=== PATIENT | male | born 1945 | race Caucasian/White ===

== ENCOUNTER 2016-08-16 10:21 | Observation (INO) | payer OTHER ==
[~2016-08-16] VITALS: Ht 185.4 cm; Wt 78.4 kg
[2016-08-16] MEDS ORDERED: HYDR12.56 PO (10:51)
[2016-08-16] MEDS ORDERED: LOSA1TAB PO (10:51)
[2016-08-16] MEDS ORDERED: ATOR-24 PO (10:51)
[2016-08-16] MEDS ORDERED: ASPI81TA28 PO (10:51)
[2016-08-16] MEDS ORDERED: MULT-506 PO (10:51)
[2016-08-16 11:07] LABS: BASO % 0.2 %; BASO ABS # 0.01 K/uL (0-0.2); COMPLETE YES; EOS % 0.4 %; HEMATOCRIT 37.4 % (42-52); IG% 0.4 %; LYMPH % 18.4 %; LYMPH ABS # 0.88 K/uL (1.2-3.4); MEAN CELL VOLUME 94.7 fL (80-100); MEAN CORPUSCULAR HEMOGLOBIN 32.9 pg (25-34); MEAN CORPUSCULAR HGB CONC 34.8 g/dl (32-36); MEAN PLATELET VOLUME 10.4 fL (7.4-10.4); MONO % 30.8 %; NEUT % 49.8 %; PLATELET COUNT 186 K/uL (130-400); RED BLOOD COUNT 3.95 M/uL (4.7-6.1); WHITE BLOOD COUNT 4.78 K/uL (4.8-10.8)
--- NOTE | 2016-08-16 11:11 | DIAGNOSTIC IMAGING REPORT ---
CHEST ONE VIEW PORTABLE HISTORY: Atypical CHEST PAIN COMPARISON: None. FINDINGS: The lungs are clear. Cardiac silhouette is normal in size. No pleural effusions. No pneumothorax. IMPRESSION: No acute process. Electronically signed by: Ramos Palmer M.D. 08/16/2016 11:10 AM Dictated Date/Time: 08/16/2016 11:09 AM
[2016-08-16 11:19] LABS: BUN/CREATININE RATIO 14.1 (10-20); CALCIUM 8.4 mg/dl (8.5-10.1); POTASSIUM 4.1 mmol/L (3.5-5.1)
[2016-08-16] MEDS ORDERED: ASPIRIN 81 MG CHEW PO STA (11:23)
--- NOTE | 2016-08-16 11:24 | EMERGENCY ROOM VISIT NOTE ---
History Report prepared by Piyush: Maria E Beyer Under the Supervision of: Dr. Xiang Silver M.D. First contact with patient: 10:27 Chief Complaint: CHEST PAIN Stated Complaint: CHEST PAIN History of Present Illness The patient is a 71 year old male who presents to the Emergency Room with complaints of intermittent chest pain for the past week. The patient describes his pain as a tightness in his chest. Exertion exacerbates his pain, and he becomes short of breath with walking even short distances. The patient states that he first noticed his pain last week while he was cutting his grass. His pain is located in the center of his chest and does not radiate anywhere else. He is not currently experiencing any chest pain. He has a history of a PFO but denies any other significant cardiac history. He has had a stress test in the past. He has not had any previous cardiac catheterizations. The patient denies fevers, headache, nausea, diaphoresis, abdominal pain, pain or swelling in his legs, and any recent travel. He takes a daily aspirin. He does have a diffuse rash and notes that he used a different soap yesterday than he usually does. Per , the patient's hemoglobin has been "going down" for the past year. His GI doctor does not think that he is losing blood in his stool. The patient had blood work done 3 days ago. His daughter works with a product support rep and had the product support rep look at the patient's blood work. The patient has not been seen by a product support rep. Source of History: patient Onset: 1 week ago Position: chest Quality: other (tightness) Timing: intermittent Modifying Factors (Worsening): exertion Associated Symptoms: + SOB, + rash, No abdominal pain, No diaphoresis, No fevers, No headache, No nausea Review of Systems See HPI for pertinent positives & negatives. A total of 10 systems reviewed and were otherwise negative. Past Medical & Surgical Medical Problems: (1) Chest pain (2) Hyperlipidemia (3) Hypertension (4) PFO (patent foramen ovale) (5) Spinal stenosis Old medical records were reviewed. Nurse's notes were reviewed and I agree with. Family History FHx: cancer Social History Smoking Status: Never Smoker Marital Status: Housing Status: lives with family Occupation Status: retired Current/Historical Medications Scheduled Aspirin (Aspirin Ec), 81 MG PO DAILY Atorvastatin (Lipitor), 40 MG PO DAILY Hydrochlorothiazide (Hctz), 12.5 MG PO DAILY Losartan Potassium (Cozaar), Unknown Dose PO DAILY Multivitamin (Multivitamin), 1 TAB PO DAILY Allergies Coded Allergies: Sulfa Antibiotics (Unverified Allergy, Intermediate, rash, 08/16/16) Physical Exam Vital Signs Date Time Temp Pulse Resp B/P Pulse Ox O2 Delivery O2 Flow Rate FiO2 08/16/16 11:55 97 Room Air 08/16/16 10:50 97 Room Air 08/16/16 10:33 63 08/16/16 10:23 36.6 64 17 142/83 98 Room Air Physical Exam General: Well developed well nourished non ill appearing older male in no acute distress, breathing comfortably on room air. Normal speech. Denies chest pain at present. HEENT: Normal cephalic atraumatic. Pupils are equal round and reactive to light. Sclerae are anicteric. Extraocular movements are intact. Oropharynx is pink with moist mucous membranes. No swelling of the mouth lips or tongue. Neck: Supple with a midline trachea. No meningeal signs or stiffness, no JVD or bruits. No Stridor. Chest: Clear to auscultation bilaterally. No wheezes or rhonchi. No increased work of breathing. Heart: regular rate and rhythm. Abdomen: Soft nontender, nondistended without rebound guarding or rigidity. Extremities: No cyanosis clubbing or edema. No calf tenderness or assymetry Spine/Back. Non tender to palpation. No CVA tenderness Skin: Good turgor, diffuse circular small rash that blanches. Neurologic exam: Cranial nerves two through 12 are intact. Motor and sensation are intact and symmetrical throughout. Medical Decision & Procedures ER Provider Diagnostic Interpretation: Radiology results as stated below per my review and radiologist interpretation: CHEST ONE VIEW PORTABLE HISTORY: Atypical CHEST PAIN COMPARISON: None. FINDINGS: The lungs are clear. Cardiac silhouette is normal in size. No pleural effusions. No pneumothorax. IMPRESSION: No acute process. Electronically signed by: Ramos Palmer M.D. 08/16/2016 11:10 AM Dictated Date/Time: 08/16/2016 11:09 AM Laboratory Results 08/16/16 10:50 Red Blood Count 3.95, Mean Corpuscular Volume 94.7, Mean Corpuscular Hemoglobin 32.9, Mean Corpuscular Hemoglobin Concent 34.8, Mean Platelet Volume 10.4, Neutrophils (%) (Auto) 49.8, Lymphocytes (%) (Auto) 18.4, Monocytes (%) (Auto) 30.8, Eosinophils (%) (Auto) 0.4, Basophils (%) (Auto) 0.2, Neutrophils # (Auto ) 2.38, Lymphocytes # (Auto) 0.88, Monocytes # (Auto) 1.47, Eosinophils # (Auto ) 0.02, Basophils # (Auto) 0.01 08/16/16 10:50 Test 08/16/16 10:50 08/16/16 10:57 White Blood Count 4.78 K/uL (4.8-10.8) Red Blood Count 3.95 M/uL (4.7-6.1) Hemoglobin 13.0 g/dL (14.0-18.0) Hematocrit 37.4 % (42-52) Mean Corpuscular Volume 94.7 fL (80-100) Mean Corpuscular Hemoglobin 32.9 pg (25-34) Mean Corpuscular Hemoglobin Concent 34.8 g/dl (32-36) Platelet Count 186 K/uL (130-400) Mean Platelet Volume 10.4 fL (7.4-10.4) Neutrophils (%) (Auto) 49.8 % Lymphocytes (%) (Auto) 18.4 % Monocytes (%) (Auto) 30.8 % Eosinophils (%) (Auto) 0.4 % Basophils (%) (Auto) 0.2 % Neutrophils # (Auto) 2.38 K/uL (1.4-6.5) Lymphocytes # (Auto) 0.88 K/uL (1.2-3.4) Monocytes # (Auto) 1.47 K/uL (0.11-0.59) Eosinophils # (Auto) 0.02 K/uL (0-0.5) Basophils # (Auto) 0.01 K/uL (0-0.2) RDW Standard Deviation 51.5 fL (36.4-46.3) RDW Coefficient of Variation 15.0 % (11.5-14.5) Immature Granulocyte % (Auto) 0.4 % Immature Granulocyte # (Auto) 0.02 K/uL (0.00-0.02) Erythrocyte Sedimentation Rate 20 mm/hr (0-14) Prothrombin Time 12.3 SECONDS (9.0-12.0) Prothromb Time International Ratio 1.1 (0.9-1.1) Activated Partial Thromboplast Time 28.8 SECONDS (21.0-31.0) Partial Thromboplastin Ratio 1.1 Anion Gap 4.0 mmol/L (3-11) Est Creatinine Clear Calc Drug Dose 76.6 ml/min Estimated GFR () 88.0 Estimated GFR (Non- 75.9 BUN/Creatinine Ratio 14.1 (10-20) Calcium Level 8.4 mg/dl (8.5-10.1) Total Bilirubin 0.5 mg/dl (0.2-1) Direct Bilirubin 0.2 mg/dl (0-0.2) Aspartate Amino Transf (AST/SGOT) 25 U/L (15-37) Alanine Aminotransferase (ALT/SGPT) 24 U/L (12-78) Alkaline Phosphatase 110 U/L (45-117) Total Creatine Kinase 138 U/L (39-308) C-Reactive Protein 2.42 mg/dl (0-0.29) Total Protein 7.0 gm/dl (6.4-8.2) Albumin 3.2 gm/dl (3.4-5.0) Lipase 173 U/L (73-393) Thyroid Stimulating Hormone (TSH) 2.720 uIu/ml (0.300-4.500) Lyme Disease IgG Antibody NEG (NEG) Lyme Disease IgM Antibody NEG (NEG) Bedside Troponin I 0.000 ng/ml (0-0.045) Laboratory studies as stated above per my review. Medications Administered Medications (Trade) Dose Ordered Sig/Abdullahi Route Start Time Stop Time Status Last Admin Dose Admin Aspirin 324 mg 324 mg NOW STAT PO 08/16/16 11:23 08/16/16 11:24 DC 08/16/16 11:37 324 MG Sodium Chloride (Nss 1000ml) 1,000 ml @ 50 mls/hr Q20H IV 08/16/16 11:44 09/15/16 11:43 08/16/16 13:58 50 MLS/HR ECG Indication: chest pain Rate (beats per minute): 61 Rhythm: normal sinus Findings: no acute ischemic change, no ectopy Comparison ECG Date: 12/25/2004 Change: Rate has increased otherwise no significant change. ED Course 1027: Past medical records reviewed. The patient was evaluated in room B2, and a complete history and physical examination were performed. 1122: I reassessed the patient at this time. He is feeling better and resting comfortably. I discussed the results and treatment plan with the patient. I answered all pertaining questions that he had. He expressed understanding and verbalized agreement. 1123: Aspirin 324 mg PO 1132: I spoke with Dr. Hull. We discussed the patient's results and treatment plan. The patient will be evaluated by the [facility] for further management. Medical Decision Differential diagnoses includes acute coronary syndrome, anemia, infection, electrolyte or metabolic abnormality. Medication Reconciliation: I attest that I have personally reviewed the patient' s current medication list. Blood pressure Screening: Patient was found to have normal blood pressure on screening and does not require follow-up. This patient comes in as described above. He was placed in room B2. He is here for treatment and evaluation of chest pain and shortness of breath that is exertional. He feels fine at rest. His also says hemoglobin has been chronically low. He has a rashes well that's diffuse and blanching. It is not vasculitic or petechial-appearing. He has no fever. He looks well. IV access established, EKG was obtained as well as a chest x-ray multiple blood testing was obtained. He was reassessed frequently. His hemoglobin is the 13 range. He has no thrombocytopenia. He was given aspirin. EKG shows no acute ischemic changes or ectopy. Chest x-ray was unremarkable is no evidence of congestive heart failure, pneumonia, or pneumothorax. I do think the patient needs to be admitted for further treatment and evaluation concerned any he has had persistent chest pain with exertion and I'm concerned for cardiac blockage. [facility]. Consults Time Called: 1128 Consulting Physician: Dr. Hull Returned Call: [address] Hull. We discussed the patient's results and treatment plan. The patient will be evaluated by the [facility] for further management. Impression Primary Impression: Unstable angina Additional Impressions: Precordial chest pain Rash Scribe Attestation The scribe's documentation has been prepared under my direction and personally reviewed by me in its entirety. I confirm that the note above accurately reflects all work, treatment, procedures, and medical decision making performed by me. Departure Information Dispostion Being Evaluated By Hospitalist Referrals No Doctor, Assigned (PCP) Patient Instructions My [facility] Problem Qualifiers
[2016-08-16 11:28] LABS: C-REACTIVE PROTEIN 2.42 mg/dl (0-0.29); CKMB/CK RATIO 2.1 (0-3.0); THYROID STIMULATING HORMONE 2.72 uIu/ml (0.300-4.500)
[2016-08-16 11:29] LABS: INR 1.1 (0.9-1.1); PARTIAL THROMBOPLASTIN RATIO 1.1; PROTHROMBIN TIME (PATIENT) 12.3 SECONDS (9.0-12.0)
--- NOTE | 2016-08-16 11:43 | History and Physical ---
History & Physical Date & Time of Service: August 16, 2016 at 11:43 Chief Complaint: Chest Pain Primary Care Physician: Daryl Naylor M.D. History of Present Illness Source: patient, family Patient is a 71 yr old male with PMH of HTN, HLP, PFO, seasonal allergies presents with history of intermittent chest pain since 1 week duration. Reports pressure like sensation retrosternally which started while cutting grass 1 week ago which resolved with rest after 30 minutes. States that he noticed recurrence of chest pain with exertion especially when taking a flight of stairs or walking which resolves with rest. Reports associated dizziness. Denies any pain radiation, diaphoresis, nausea, vomiting, SOB, abd pain, orthopnea, PND, leg swelling, fever, chills, change in bowel/bladder habits. Currently denies any chest pain while in ED but feels very tired. Also reports noticing a generalized erythematous rash which started about 2 days ago. His informed that she noticed a tick on his leg which she removed last . Patient had lyme screen 3 days ago by his PCP which is negative. Denies any new meds, foods, recent travel but states using a different soap yesterday which he believes using before without any problems. Past Medical/Surgical History Medical Problems: (1) PFO (patent foramen ovale) Status: Chronic (2) Spinal stenosis Status: Chronic Past Surgical History: Right Shoulder Surgery Tonsillectomy Family History FHx: cancer Father:Asthma Maternal Grandfather: Heart disease Mother:HTN Social History Smoking Status: Never Smoker Alcohol Use: socially Drug Use: none Marital Status: Occupational Status: retired Multi-Drug Resistant Organisms History of MDRO: No Allergies Coded Allergies: Sulfa Antibiotics (Unverified Allergy, Intermediate, rash, 08/16/16) Home Medications Scheduled Aspirin (Aspirin Ec), 81 MG PO DAILY Atorvastatin (Lipitor), 40 MG PO DAILY Hydrochlorothiazide (Hctz), 12.5 MG PO DAILY Losartan Potassium (Cozaar), Unknown Dose PO DAILY Multivitamin (Multivitamin), 1 TAB PO DAILY Review of Systems See HPI for pertinent positives & negatives. A total of 10 systems reviewed and were otherwise negative. Physical Exam Vital Signs Date Time Temp Pulse Resp B/P Pulse Ox O2 Delivery O2 Flow Rate FiO2 08/16/16 10:50 97 Room Air 08/16/16 10:33 63 08/16/16 10:23 36.6 64 17 142/83 98 Room Air General Appearance: WD/WN, no apparent distress Head: normocephalic, atraumatic Eyes: normal inspection, PERRL, EOMI, sclerae normal, funduscopic exam normal ENT: normal ENT inspection, hearing grossly normal Neck: supple, trachea midline Respiratory/Chest: chest non-tender, lungs clear, normal breath sounds, no accessory muscle use Cardiovascular: regular rate, rhythm, no edema, no murmur Abdomen/GI: normal bowel sounds, non tender, soft Back: normal inspection Extremities/Musculoskelatal: normal inspection, no pedal edema 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, no motor/sensory deficits, alert, normal mood/affect, oriented x 3 Skin: normal color, + rash (Diffuse, erythematous) Diagnostics Laboratory Results Results Past 24 Hours Test 08/16/16 10:42 08/16/16 10:50 08/16/16 10:57 Range/Units Creatine Kinase MB Ratio 2.1 0-3.0 White Blood Count 4.78 4.8-10.8 K/uL Red Blood Count 3.95 4.7-6.1 M/uL Hemoglobin 13.0 14.0-18.0 g/dL Hematocrit 37.4 42-52 % Mean Corpuscular Volume 94.7 80-100 fL Mean Corpuscular Hemoglobin 32.9 25-34 pg Mean Corpuscular Hemoglobin Concent 34.8 32-36 g/dl Platelet Count 186 130-400 K/uL Mean Platelet Volume 10.4 7.4-10.4 fL Neutrophils (%) (Auto) 49.8 % Lymphocytes (%) (Auto) 18.4 % Monocytes (%) (Auto) 30.8 % Eosinophils (%) (Auto) 0.4 % Basophils (%) (Auto) 0.2 % Neutrophils # (Auto) 2.38 1.4-6.5 K/uL Lymphocytes # (Auto) 0.88 1.2-3.4 K/uL Monocytes # (Auto) 1.47 0.11-0.59 K/uL Eosinophils # (Auto) 0.02 0-0.5 K/uL Basophils # (Auto) 0.01 0-0.2 K/uL RDW Standard Deviation 51.5 36.4-46.3 fL RDW Coefficient of Variation 15.0 11.5-14.5 % Immature Granulocyte % (Auto) 0.4 % Immature Granulocyte # (Auto) 0.02 0.00-0.02 K/uL Erythrocyte Sedimentation Rate 20 0-14 mm/hr Prothrombin Time 12.3 9.0-12.0 SECONDS Prothromb Time International Ratio 1.1 0.9-1.1 Activated Partial Thromboplast Time 28.8 21.0-31.0 SECONDS Partial Thromboplastin Ratio 1.1 Sodium Level 141 136-145 mmol/L Potassium Level 4.1 3.5-5.1 mmol/L Chloride Level 105 98-107 mmol/L Carbon Dioxide Level 32 21-32 mmol/L Anion Gap 4.0 3-11 mmol/L Blood Urea Nitrogen 14 7-18 mg/dl Creatinine 1.00 0.60-1.40 mg/dl Est Creatinine Clear Calc Drug Dose 76.6 ml/min Estimated GFR () 88.0 Estimated GFR (Non- 75.9 BUN/Creatinine Ratio 14.1 10-20 Random Glucose 84 70-99 mg/dl Calcium Level 8.4 8.5-10.1 mg/dl Total Bilirubin 0.5 0.2-1 mg/dl Direct Bilirubin 0.2 0-0.2 mg/dl Aspartate Amino Transf (AST/SGOT) 25 15-37 U/L Alanine Aminotransferase (ALT/SGPT) 24 12-78 U/L Alkaline Phosphatase 110 45-117 U/L Total Creatine Kinase 138 39-308 U/L Creatine Kinase MB 2.9 0.5-3.6 ng/ml C-Reactive Protein 2.42 0-0.29 mg/dl Total Protein 7.0 6.4-8.2 gm/dl Albumin 3.2 3.4-5.0 gm/dl Lipase 173 73-393 U/L Thyroid Stimulating Hormone (TSH) 2.720 0.300-4.500 uIu/ml Bedside Troponin I 0.000 0-0.045 ng/ml Diagnostic Radiology CXR: No acute process. EKG EKG: NSR, No signs of Ischemia Impression Assessment and Plan Chest Pain: R/O ACS Risk factors: H/O HTN, HLP, Former Tobacco use Initial troponin:Negative EKG: No signs of Ischemia CXR: Unremarkable Check ECHO Trend serial cardiac enzymes, repeat EKG, fasting lipid panel in AM Continue Aspirin, statins Oxygen PRN NPO after midnight Cardiology consulted Low threshold to start Heparin if chest pain reoccurs/Troponin trends up Generalized Rash: Found to have tick bite last Lyme screen negative 3 days ago Repeat Lyme screen monitor Rash not typical for lyme disease Hypertension: Stable Continue home meds Hyperlipidemia: Check lipid panel Continue statins DVT px: Heparin SQ Code Status: Full code Disposition: Monitor in Tele
[2016-08-16] MEDS ORDERED: ONDANSETRON INJ 2 MG/ML 2 ML VIAL IV PRN (11:45)
[2016-08-16] MEDS ORDERED: NITROGLYCERIN 0.4 MG SL PER TAB CHARGE SL PRN (11:45)
[2016-08-16] MEDS ORDERED: ACETAMINOPHEN 325 MG TAB PO PRN (11:45)
[2016-08-16 11:55] VITALS: O2SAT 97; Ht 185.4 cm; Wt 78.4 kg
[2016-08-16] MEDS ORDERED: MoRPHine SULFATE 2 MG/ML CARP IV PRN (12:30)
[2016-08-16 13:15] LABS: LYME DISEASE AB IGG NEG (NEG); LYME DISEASE AB IGM NEG (NEG)
[2016-08-16 13:35] VITALS: BP 150/73; PULSE 52; TEMP 36.7; O2SAT 95
[2016-08-16] MEDS ORDERED: IV FLUIDS COMPLETED PRN (13:45)
[2016-08-16] MEDS: SODIUM CHLORIDE 0.9% 1000ML 1,000 ML IV SCH (13:58)
[2016-08-16] MEDS ORDERED: HEPARIN 25,000 UNIT/500ML D5W 500 ML IV PRN (14:00)
[2016-08-16 19:22] VITALS: BP 145/78; PULSE 57; TEMP 36.7; O2SAT 96
[2016-08-16] MEDS: ATORVASTATIN 40 MG TAB PO SCH (20:28)
[2016-08-16] MEDS: ASPIRIN 81 MG ECTAB PO SCH (20:28)
[2016-08-16] MEDS: HEPARIN SOD 5000 UNIT/0.5 ML CARP SQ SCH (20:29)
[2016-08-16 23:56] VITALS: BP 134/73; PULSE 54; TEMP 36.6; O2SAT 95
[2016-08-17] VITALS (9 sets, daily range): BP systolic 115–144; BP diastolic 65–85; PULSE 51–80; TEMP 36.5–36.9; O2SAT 93–96
[2016-08-17] MEDS: HEPARIN SOD 5000 UNIT/0.5 ML CARP SQ SCH (05:54)
[2016-08-17 06:21] LABS: COMPLETE YES; EOS % 0.7 %; HEMATOCRIT 37.6 % (42-52); IG% 0.9 %; LYMPH % 16.6 %; LYMPH ABS # 0.96 K/uL (1.2-3.4); MEAN CELL VOLUME 94.2 fL (80-100); MEAN CORPUSCULAR HEMOGLOBIN 32.6 pg (25-34); MEAN CORPUSCULAR HGB CONC 34.6 g/dl (32-36); MEAN PLATELET VOLUME 10.1 fL (7.4-10.4); MONO % 31.5 %; NEUT % 50.3 %; PLATELET COUNT 167 K/uL (130-400); RED BLOOD COUNT 3.99 M/uL (4.7-6.1); WHITE BLOOD COUNT 5.77 K/uL (4.8-10.8)
[2016-08-17 06:32] LABS: PARTIAL THROMBOPLASTIN RATIO 1.2
[2016-08-17 07:00] LABS: BUN/CREATININE RATIO 14.7 (10-20); CALCIUM 8.2 mg/dl (8.5-10.1); CREATININE 0.99 mg/dl (0.60-1.40); POTASSIUM 4.1 mmol/L (3.5-5.1)
[2016-08-17 07:04] LABS: CHOLESTEROL/HDL RATIO 1.9
[2016-08-17] MEDS: SODIUM CHLORIDE 0.9% 1000ML 1,000 ML IV SCH (08:06)
[2016-08-17] MEDS ORDERED: ASPIRIN 81 MG ECTAB PO SCH (09:00)
[2016-08-17] MEDS ORDERED: ATORVASTATIN 40 MG TAB PO SCH (09:00)
--- NOTE | 2016-08-17 09:20 | Progress Note ---
Internal Med Progress Note Date of Service: August 17, 2016. Provider Documentation: SUBJECTIVE: Seen and examined at bedside. Currently denies any chest pain, SOB. No events overnight. Planned for cath tomorrow. 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 ASSESSMENT & PLAN: Chest Pain: R/O ACS Risk factors: H/O HTN, HLP, Former Tobacco use troponin:Negative EKG: No signs of Ischemia CXR: Unremarkable ECHO:pending lipid panel:wnl Continue Aspirin, statins Oxygen PRN Appreciate Cardiology input Planned for cardiac cath today Generalized Rash: Found to have tick bite last Lyme screen negative 3 days ago Repeat Lyme screen:Negative monitor Start Doxycycline 100mg BID Hypertension: Stable Continue home meds Hyperlipidemia: lipid panel:wnl Continue statins DVT px: Heparin SQ Code Status: Full code Disposition: Monitor in Tele Vital Signs: Date Time Temp Pulse Resp B/P Pulse Ox O2 Delivery O2 Flow Rate FiO2 08/17/16 15:30 36.9 54 16 138/76 96 Room Air 08/17/16 12:17 Room Air 08/17/16 12:00 Room Air 08/17/16 11:34 36.5 51 18 133/85 95 Room Air 08/17/16 08:00 Room Air 08/17/16 07:51 36.6 53 18 134/83 96 Room Air 08/17/16 04:06 36.7 72 18 136/69 94 Room Air 08/17/16 04:00 Room Air 08/17/16 00:00 Room Air 08/16/16 23:56 36.6 54 16 134/73 95 Room Air 08/16/16 20:00 Room Air 08/16/16 19:22 36.7 57 18 145/78 96 Room Air Lab Results: Results Past 24 Hours Test 08/16/16 19:55 08/16/16 23:50 08/17/16 05:52 Range/Units Creatine Kinase MB 1.8 2.0 0.5-3.6 ng/ml Creatine Kinase MB Ratio 0-3.0 Troponin I 0.023 0.022 0-0.045 ng/ml White Blood Count 5.77 4.8-10.8 K/uL Red Blood Count 3.99 4.7-6.1 M/uL Hemoglobin 13.0 14.0-18.0 g/dL Hematocrit 37.6 42-52 % Mean Corpuscular Volume 94.2 80-100 fL Mean Corpuscular Hemoglobin 32.6 25-34 pg Mean Corpuscular Hemoglobin Concent 34.6 32-36 g/dl Platelet Count 167 130-400 K/uL Mean Platelet Volume 10.1 7.4-10.4 fL Neutrophils (%) (Auto) 50.3 % Lymphocytes (%) (Auto) 16.6 % Monocytes (%) (Auto) 31.5 % Eosinophils (%) (Auto) 0.7 % Basophils (%) (Auto) 0.0 % Neutrophils # (Auto) 2.90 1.4-6.5 K/uL Lymphocytes # (Auto) 0.96 1.2-3.4 K/uL Monocytes # (Auto) 1.82 0.11-0.59 K/uL Eosinophils # (Auto) 0.04 0-0.5 K/uL Basophils # (Auto) 0.00 0-0.2 K/uL RDW Standard Deviation 50.6 36.4-46.3 fL RDW Coefficient of Variation 14.8 11.5-14.5 % Immature Granulocyte % (Auto) 0.9 % Immature Granulocyte # (Auto) 0.05 0.00-0.02 K/uL Activated Partial Thromboplast Time 30.6 21.0-31.0 SECONDS Partial Thromboplastin Ratio 1.2 Sodium Level 144 136-145 mmol/L Potassium Level 4.1 3.5-5.1 mmol/L Chloride Level 109 98-107 mmol/L Carbon Dioxide Level 30 21-32 mmol/L Anion Gap 5.0 3-11 mmol/L Blood Urea Nitrogen 15 7-18 mg/dl Creatinine 0.99 0.60-1.40 mg/dl Est Creatinine Clear Calc Drug Dose 74.7 ml/min Estimated GFR () 89.1 Estimated GFR (Non- 76.8 BUN/Creatinine Ratio 14.7 10-20 Random Glucose 86 70-99 mg/dl Calcium Level 8.2 8.5-10.1 mg/dl Triglycerides Level 72 0-150 mg/dl Cholesterol Level 87 0-200 mg/dl HDL Cholesterol 46 mg/dl LDL Cholesterol, Calculated 27 mg/dl VLDL Cholesterol, Calculated 14 mg/dl Cholesterol/HDL Ratio 1.9
[2016-08-17] MEDS: LOSARTAN POTASSIUM 50 MG TAB PO SCH (09:27)
[2016-08-17] MEDS: HYDROCHLOROTHIAZIDE 25 MG TAB PO SCH (09:28)
[2016-08-17] MEDS ORDERED: SODIUM CHLORIDE 0.9% 1000ML 1,000 ML IV SCH ×2 (09:45→22:30)
[2016-08-17] MEDS ORDERED: DC ALL ANTICOAGULANTS ONE (09:45)
--- NOTE | 2016-08-17 10:35 | ECHOCARDIOGRAM REPORT ---
*NOTICE TO RECEIVING [employer] This information is strictly Confidential and protected under [place] law. [place] law prohibits you from making any further disclosure of this information unless further disclosure is expressly permitted by the written consent of the person to whom it pertains or is authorized by law. A general authorization for the release of medical or other information is not sufficient for this purpose. Hospital accepts no responsibility if the information is made available to any other person, INCLUDING THE PATIENT. Interpretation Summary * Name: LILIAN DEL CID Study Date: 08/16/2016 02:29 PM BP: 137/78 mmHg * Patient Location: .[facility]\S\N278\S\2 HR: 57 * : 1945 (M/d/yyyy) Gender: Male Height: 71 in * Age: 71 yrs Ethnicity: CA Weight: 174 lb * Ordering Physician: Joni Hull * Referring Physician: Self, Referred * Performed By: Fatimah Castaneda RCS * * Reason For Study: CHEST PAIN / KNOWN PFO * BSA: 2.0 m2 * -- Conclusions -- * There is mild concentric left ventricular hypertrophy. * The left ventricular wall motion is normal. * Left ventricular systolic function is normal. * The LV Ejection Fraction = 60-65%. * There is trace tricuspid regurgitation. * Doppler findings do not suggest pulmonary hypertension. * Grade I diastolic dysfunction, (abnormal relaxation pattern). * There is a smal PFO with mild right to left shunt with injection of agitated saline contrast. Procedure Details * A complete two-dimensional transthoracic echocardiogram was performed (2D, M-mode, Doppler and color flow Doppler). * A saline contrast injection was performed to assess for cardiac shunting. * The injection was performed through an intravenous line in the right arm. * The attending nurse who injected the saline contrast was WILLIAM AGUIAR RN. * A total of 10 cc of agitated saline was given. Left Ventricle * The left ventricle is normal in size. * There is mild concentric left ventricular hypertrophy. * Left ventricular systolic function is normal. * Ejection Fraction = 60-65%. * The left ventricular wall motion is normal. Right Ventricle * The right ventricle is normal size. * The right ventricular systolic function is normal as assessed by tricuspid annular plane systolic excursion (TAPSE) (normal >1.5 cm). Atria * The left atrial size is normal. * Right atrial size is normal. * There is a smal PFO with mild right to left shunt with injection of agitated saline contrast. Mitral Valve * The mitral valve is normal. * There is no mitral valve stenosis. * Significant mitral regurgitation is absent. Tricuspid Valve * The tricuspid valve is normal. * There is no tricuspid stenosis. * There is trace tricuspid regurgitation. * Doppler findings do not suggest pulmonary hypertension. Aortic Valve * The aortic valve is trileaflet. * Aortic stenosis is absent. * There is no significant aortic regurgitation. Pulmonic Valve * The pulmonary valve is not well seen, but the Doppler examination is normal without significant regurgitation or stenosis. Great Vessels * The aortic root and proximal ascending aorta are normal sized. Pericardium/Pleural * There is no pericardial effusion. Great Vessels * Normal inferior vena cava diameter and respiratory variation suggests normal central venous pressure. Left Ventricular Diastolic Function * Grade I diastolic dysfunction, (abnormal relaxation pattern). MMode 2D Measurements and Calculations IVSd 1.6 cm IVSs 1.9 cm LVIDd 4.9 cm LVIDs 2.3 cm LVPWd 0.93 cm LVPWs 1.0 cm IVS/LVPW 1.7 FS 53.2 % EDV(Teich) 111.8 ml ESV(Teich) 17.8 ml EF(Teich) 84.1 % EDV(cubed) 116.3 ml ESV(cubed) 11.9 ml EF(cubed) 89.7 % % IVS thick 18.7 % % LVPW thick 9.4 % LV mass(C)d 243.7 grams LV mass(C)dI 122.6 grams/m\S\2 LV mass(C)s 108.5 grams LV mass(C)sI 54.6 grams/m\S\2 SV(Teich) 94.0 ml SI(Teich) 47.3 ml/m\S\2 SV(cubed) 104.3 ml SI(cubed) 52.5 ml/m\S\2 Ao root diam 3.7 cm Ao root area 10.5 cm\S\2 ACS 2.1 cm LA dimension 3.5 cm LA/Ao 0.96 LVOT diam 2.0 cm LVOT area 3.2 cm\S\2 LVAd ap4 37.7 cm\S\2 LVLd ap4 8.5 cm EDV(MOD-sp4) 134.0 ml EDV(sp4-el) 142.1 ml LVAs ap4 16.2 cm\S\2 LVLs ap4 6.6 cm ESV(MOD-sp4) 34.6 ml ESV(sp4-el) 33.6 ml EF(MOD-sp4) 74.2 % EF(sp4-el) 76.4 % LVAd ap2 34.7 cm\S\2 LVLd ap2 8.0 cm EDV(MOD-sp2) 123.7 ml EDV(sp2-el) 127.8 ml LVAs ap2 14.8 cm\S\2 LVLs ap2 6.6 cm ESV(MOD-sp2) 31.5 ml ESV(sp2-el) 28.2 ml EF(MOD-sp2) 74.6 % EF(sp2-el) 77.9 % LVLd %diff -6.31 % EDV(MOD-bp) 133.6 ml LVLs %diff -0.74 % ESV(MOD-bp) 32.6 ml EF(MOD-bp) 75.6 % SV(MOD-sp4) 99.4 ml SI(MOD-sp4) 50.0 ml/m\S\2 SV(MOD-sp2) 92.2 ml SI(MOD-sp2) 46.4 ml/m\S\2 SV(MOD-bp) 101.0 ml SI(MOD-bp) 50.8 ml/m\S\2 SV(sp4-el) 108.5 ml SI(sp4-el) 54.6 ml/m\S\2 SV(sp2-el) 99.6 ml SI(sp2-el) 50.1 ml/m\S\2 Doppler Measurements and Calculations MV E max kim 73.3 cm/sec MV A max kim 81.4 cm/sec MV E/A 0.90 MV P1/2t max kim 94.2 cm/sec MV P1/2t 84.5 msec MVA(P1/2t) 2.6 cm\S\2 MV dec slope 326.3 cm/sec\S\2 MV dec time 0.22 sec Ao V2 max 143.8 cm/sec Ao max PG 8.3 mmHg Ao max PG (full) 2.0 mmHg LYNNE(V,A) 2.8 cm\S\2 LYNNE(V,D) 2.8 cm\S\2 LV V1 max PG 6.3 mmHg LV V1 max 125.1 cm/sec PA V2 max 87.1 cm/sec PA max PG 3.0 mmHg TR max kim 222.7 cm/sec
--- NOTE | 2016-08-17 10:36 | CARDIOLOGY CONSULTATION ---
DATE OF CONSULTATION: 08/17/2016 REFERRING PHYSICIAN: Traci hernandez. REASON FOR CONSULTATION: Chest pain. HISTORY OF PRESENT ILLNESS: This is a 71-year-old male patient who has had minimal past medical history. Approximately a week ago, he was cutting his grass with a push mower. He developed retrosternal chest discomfort which lasted for approximately a half hour and then spontaneously resolved. He has always been very healthy and actually works out on a treadmill, so he did not think much of it. However, since that time with minimal exertion, he has return of his chest pain. States if he walks up a flight of stairs, he will get the discomfort and he will have to rest. If he walked across the parking lot, he would have to rest when he got to his car. He was concerned enough and presented to the Emergency Department. His cardiac markers are borderline elevated. His EKG is normal. I think the patient is having classic angina symptoms. I think it is best that we proceed with a cardiac catheterization. ALLERGIES: SULFA ANTIBIOTICS. PAST MEDICAL HISTORY: The patient has minimal past medical history. He has been treated for hypertension and hyperlipidemia. He also has a history of a benign PFO picked up on an echocardiogram. The patient 2 days ago was found to have a tick by his on his leg. She removed it. His Lyme's titer through his primary care physician's office have been negative. He was not started on antibiotics. He has also had a rash on his shoulders and upper arms for the past 2 days of uncertain etiology. It is not a typical rash for a Lyme's disease. He has no food allergies. He has not changed soaps or traveled recently. FAMILY MEDICAL HISTORY: Significant for asthma in his father and heart disease in his maternal grandfather. SOCIAL HISTORY: He is a lifelong nonsmoker. He is , lives with his and is retired. REVIEW OF SYSTEMS: A 10-point review of systems is negative, except for the history of chief complaint. PHYSICAL EXAMINATION: GENERAL: He is alert and oriented, in no acute distress. VITAL SIGNS: Blood pressure is 140/80, pulse is regular at 64. He is afebrile. HEENT: He is normocephalic. Pupils are equal and reactive to light. Extraocular muscles are intact bilaterally. NECK: The neck veins are flat. Carotids have good upstrokes bilaterally without bruits. Thyroid is nonpalpable. RESPIRATORY: Breath sounds equal bilaterally and clear to auscultation. CARDIOVASCULAR: Heart has a regular rhythm. Normal S1, S2. No S3, S4. No cardiac rubs or murmurs. GASTROINTESTINAL: Abdomen is soft, nontender without organomegaly. EXTREMITIES: Free of edema, digit clubbing, or cyanosis. NEUROLOGIC: Grossly intact. SKIN: Warm to touch. LYMPH NODES: Negative to palpation. IMPRESSION: 1. Classic anginal type symptoms, would rule out acute coronary syndrome. 2. Hypertension. 3. Recent tick interaction and an erythematous rash, would treat him with doxycycline, even though his Lyme's titers were negative. RECOMMENDATIONS: As outlined above, I think we should proceed with a cardiac catheterization. I have explained the risks, benefits and intent of the procedure to him including the potential for catheter based intervention such as balloon angioplasty or intracoronary stenting. The patient as outlined above, has a mild erythematous rash and exposure to a tick. I do not believe that this should hold up his heart catheterization as I think he is having unstable angina. One final note is that his primary care physician noted he was mildly anemic and his presenting hemoglobin here in the hospital is 13. If he requires a stent, then we consider a bare metal stent. DAVY
[2016-08-17] MEDS ORDERED: FENTANYL CITRATE INJ 50 MCG/1 ML 2 ML VIAL ONE ×2 (18:10→20:49)
[2016-08-17] MEDS ORDERED: MIDAZOLAM HCL 1 MG/ML 2ML VIAL ONE ×2 (18:10→20:06)
[2016-08-17] MEDS ORDERED: HEPARIN SOD (PORCINE) 1000 UNIT/ML 10 ML VIAL ONE (18:10)
[2016-08-17] MEDS ORDERED: NiCARDipine HCL INJ 2.5 MG/ML 10 ML AMP ONE (18:10)
[2016-08-17] MEDS ORDERED: NITROGLYCERIN/D5W 100MCG/ML 20ML SYR ONE (18:11)
--- NOTE | 2016-08-17 19:32 | Cardiac Catheterization ---
Procedure Note Procedure Date August 17, 2016. Pre-Procedure Diagnosis Angina AUC Score 8 Post-Procedure Diagnosis Severe CAD, Normal LV Systolic Function, Normal Intracardiac Pressures Procedure(s) Performed Coronary Angiography, Left Heart Cath, LV Angiography Field Marketing Team Leader Dr. Sanchez Laundry Agent(s) None Estimated Blood Loss None Medication(s) Versed, Lidocaine 1% Summary of Findings Ulcerated subtotal mid LAD at trifurcation. Ramus 80 % Hemodynamics Rest Ao: 104/64 Final Ao: 117/63 LV: 109/4 Recommendations PCI without planned CABG Specimens None Radiation Exposure (mGy) 1172 Contrast (mls) 107 Procedural Complication(s) None Disposition Recovery Room / PACU ACC Data Cardiac Status Clinical evaluation leading to the procedure CAD Presntation: Unstable angina Anginal Classification: CCS III Heart Failure: No Cardiogenic Shock w/in 24Hrs: No Cardiac Arrest w/in 24Hrs: No Imaging studies past 6 months: Yes Stress studies past 6 months: No Coronary Anatomy Dominant: Right Left Main (% Stenosis): Normal LAD (% Stenosis): Mid (90) D1 (% Stenosis): Proximal (70) D2 (% Stenosis): Proximal (70) D3 (% Stenosis): Normal RCA (% Stenosis): Normal Left Ventricular Angiography EF (%): 60 Mitral Regurgitation: None Diagnostic Status: Urgent Closure Device Percutaneous Entry Location: Radial Closure Device: Radial Band Recommendations: PCI without planned CABG PCI Indication: PCI for high risk Non-STEMI
--- NOTE | 2016-08-17 19:34 | Procedure Note ---
Pre-Mod Sedation Assessment General Date of Moderate Sedation: August 17, 2016. Start 18:49 Vital Signs: Vital Signs Past 12 Hours Date Time Temp Pulse Resp B/P Pulse Ox O2 Delivery O2 Flow Rate FiO2 08/17/16 16:00 Room Air 08/17/16 15:30 36.9 54 16 138/76 96 Room Air 08/17/16 12:17 Room Air 08/17/16 12:00 Room Air 08/17/16 11:34 36.5 51 18 133/85 95 Room Air 08/17/16 08:00 Room Air 08/17/16 07:51 36.6 53 18 134/83 96 Room Air Review Cardiovascular: regular rate, rhythm, no edema, no gallop, no JVD, no murmur, normal peripheral pulses Abdomen: normal bowel sounds, non tender, soft, no organomegaly, no pulsatile mass Lungs: lungs clear Airway Class: I Pre-Sedation Airway Assessment Oral Cavity: Dentures Able to Visualize Vocal Cords: No Short Thick Neck: No Hx of Sleep Apnea: No Smoking Status: Never Smoker Mallampati Classification: Class I ASA Classification: Class I Procedure Planning Contraindications-for Mod Sed: None Yes Notes The planned sedation has been discussed with the patient and consent obtained. I have identified the patient, determined the appropriateness of sedation and have assessed the patient immediately prior to the procedure. All medicine(s) and interventions are by my order.
[2016-08-17] MEDS ORDERED: TICAGRELOR 90 MG TAB PO ONE (22:04)
--- NOTE | 2016-08-17 23:30 | Procedure Note ---
Post-Mod Sedation Assessment General Date of Moderate Sedation August 17, 2016. Vital Signs: Vital Signs Past 12 Hours Date Time Temp Pulse Resp B/P Pulse Ox O2 Delivery O2 Flow Rate FiO2 08/17/16 23:15 57 16 115/65 96 Room Air 08/17/16 22:52 60 18 125/72 93 Room Air 08/17/16 22:36 36.6 58 18 120/67 94 Room Air 08/17/16 22:24 50 16 121/69 93 Room Air 08/17/16 22:19 Room Air 08/17/16 22:14 Room Air 08/17/16 22:09 Room Air 08/17/16 22:04 51 16 118/68 95 Room Air 08/17/16 16:00 Room Air 08/17/16 15:30 36.9 54 16 138/76 96 Room Air 08/17/16 12:17 Room Air 08/17/16 12:00 Room Air 08/17/16 11:34 36.5 51 18 133/85 95 Room Air Review - Discharge Criteria Vital Signs Stable: Yes Alert/Oriented/Conversant: Yes Returned to Baseline Mental St: Yes Nausea Absent/Minimal: Yes Pain/Discomfort/Absent/Minimal: Yes Normal/Baseline Respirations: Yes Active Bleeding?: N/A Pt Received D/C Instructions: N/A Prescriptions Given: None Specific Proced. D/C Criteria Distal Pulses Present (Cardiac: Yes Groin site assessed-Card Cath: N/A Voided Prior To Discharge: N/A Discharged Patients Adult Escort/Transportation: Yes
[2016-08-17] MEDS: ASPIRIN 81 MG ECTAB PO SCH (23:36)
[2016-08-17] MEDS: DOXYCYCLINE HYCLATE 100 MG CAP PO SCH (23:36)
[2016-08-17] MEDS: ATORVASTATIN 40 MG TAB PO SCH (23:36)
[2016-08-18] VITALS (14 sets, daily range): BP systolic 93–126; BP diastolic 52–81; PULSE 52–85; TEMP 36.4–37; O2SAT 94–98
--- NOTE | 2016-08-18 00:14 | Cardiac Catheterization ---
Procedure Note Procedure Date August 17, 2016. Pre-Procedure Diagnosis Acute Coronary Syndrome AUC Score 7 Post-Procedure Diagnosis Severe CAD, Successful PCI Procedure(s) Performed Drug Eluting Stent, IVUS Spring Forger Dr. Walker Doll Wig Maker(s) Glunt Estimated Blood Loss 34 Medication(s) Fentanyl, Heparin, Nicardipine, Nitroglycerin, Versed Ticagrelor Summary of Findings Indication: Acute Coronary Syndrome Access: 6Fr Right Radial Artery Catheters: EBU 3.5 guide Findings: For full details of patient's coronary anatomy please see details from cath report dictated by Dr. Sanchez from earlier today. Briefly, patient noted to have have a severe 95% mid LAD stenosis involving the bifurcation of large 1st diagonal. -- PCI -- Antithrombotic therapy: Heparin, Ticagrelor Procedure: LM cannulated with EBU 3.5 guide Whisper wire passed across lesion into 1st diagonal Sheet Tester 50 wire passed into distal LAD LAD and 1st diagonal predilated with 2.5 balloon 2.75 x 22 Resolute NEO placed in LAD across diagonal take-off. 1st diagonal re-wired with whisper wire Stent struts into diagonal dilated with 1.5, 2.0, 2.5 balloons Attempted to post-dilate stent with 3.75 NC balloon but unable to pass balloon into distal stent Rickreall that diagonal wire had traveled behind LAD stent struts -- wire position confirmed with IVUS (part of proximal stent effectively crushed) At that point LAD re-wired with whisper wire and Sheet Tester 50 removed Stent struts into LAD dilated with 2.0 balloon, then 3.75 balloon LAD into diagonal then predilated with 3.75 NC balloon, while 2.[address] in distal LAD Repeat IVUS into diagonal and LAD used for sizing and to confirm adequate expansion for stent delivery. 3.0 x 26 Resolute NEO placed from LAD into 1st diagonal. Sheet Tester 50 used to re-wire into LAD Stent struts into LAD dilated with 1.5, 2.0 and 2.5 balloon. Kissing balloon inflation with 3.75 NC in 1st diagonal and 2.5 balloon in LAD 4.0 NC balloon used to post-dilate proximal stent into LAD. IC vasodilators administered for spasm. Evidence of myocardial bridging in mid LAD distal to stent Post procedure - STACY 3 flow, stent well expanded with minimal residual stenosis and no apparent cardiac complications. Arterial Closure: TR Band Summary: 1. Successful PCI of mid LAD and 1st diagonal bifurcation with 2 drug-eluting stents (DK Crush - LAD 2.75 x 22 Resolute [post dilated to 4.0], Diagonal 3.0 x 26 Resolute [post dilated to 3.75]) Recommendations: To PCU for continued monitoring Loaded with Ticagrelor 180mg in lab aid Continue dual-antiplatelet therapy with for 1 year, possibly prolonged with overlapping bifurcation stenting Continue statin, and ASCVD risk factor modification with Dr. Sanchez Consult cardiac Rehab Hemodynamics Rest Ao: 104/64/81 Final Ao: 102/48/66 LV: 119/4 Recommendations PCI without planned CABG Specimens None Radiation Exposure (mGy) 7651 Contrast (mls) 205 Fluids (cc crystalloids) 600 Drains None Anesthesia Moderate Procedural Complication(s) None Disposition PCU ACC Data Cardiac Status Clinical evaluation leading to the procedure CAD Presntation: Unstable angina Anginal Classification: CCS III Heart Failure: No, NYHA Class: CCS I Cardiogenic Shock w/in 24Hrs: No Cardiac Arrest w/in 24Hrs: No Imaging studies past 6 months: Yes Stress studies past 6 months: No Standard Exercise Stress Test: No Stress Echocardiogram: No Stress Testing w/SPECT MPI: No Cardiac CTA: No Coronary Anatomy Dominant: Right Diagnostic Physician's Name: Tariq Sanchez, DO Status: Urgent Closure Device Percutaneous Entry Location: Radial Closure Device: Radial Band Recommendations: PCI without planned CABG PCI Indication: Unstable Angina Lesion Segment Name: Mid LAD Culprit Artery: Yes Stenosis Prior to Rx (%): 95 Chronic Total Occlusion: No IVUS: Yes FFR: No Pre-Procedure STACY Flow: 3 Previously Treated Lesion: No Lesion Complexity: High/C Lesion Length (mm): 15 Thrombus Present: Yes Bifurcation Lesion: Yes Guidewire Across Lesion: Yes Guidewire: Stenosis Post-Procedure (%): 0 Post-Procedure STACY Flow: 3 Device(s) Deployed: Yes Intraprocedure Events Significant Dissection: No Perforation: No
--- NOTE | 2016-08-18 06:57 | CARDIAC CATH REPORT ---
PROCEDURES: 1. Left heart catheterization. 2. Coronary angiography. 3. Left ventriculography. HISTORY OF PRESENT ILLNESS: This is a 71-year-old male patient who presented with classic anginal type symptoms with exertion. PROCEDURE SUMMARY: The patient was brought to the cardiac catheterization lab. After informed consent was obtained, he was prepped and draped in the usual manner for a right transradial approach. Preformed 5-Guyanese diagnostic catheters were utilized for the coronary angiograms. A 5-Guyanese pigtail catheter was utilized for left ventriculogram. Following the procedure, the patient underwent coronary intervention and was then admitted to the hospital. CORONARY ANGIOGRAPHY: Selective injections of the left coronary artery revealed the left main trunk to be normal and widely patent. The LAD in its mid segment has an ulcerated high grade stenosis estimated to be 90% involving the first diagonal and a septal porter used car lot and the main LAD. There is also a ramus branch from the left main trunk which in its proximal segment has a 90% stenosis. The left circumflex artery is widely patent and within normal limits. The right coronary artery is dominant and is widely patent and within normal limits. LEFT VENTRICULOGRAM: Left ventricle is of normal size with normal systolic function. The LVEDP is 4. The mitral valve is competent. SUMMARY: The patient has ulcerated mid LAD stenosis involving the first septal porter used car lot and the first large diagonal branch. There is also a second stenotic area in the ramus from the left main trunk. RECOMMENDATIONS: For the patient to undergo percutaneous coronary intervention.
[2016-08-18 07:26] LABS: HEMATOCRIT 35.5 % (42-52); MEAN CELL VOLUME 92.2 fL (80-100); MEAN CORPUSCULAR HEMOGLOBIN 31.7 pg (25-34); MEAN CORPUSCULAR HGB CONC 34.4 g/dl (32-36); MEAN PLATELET VOLUME 10.4 fL (7.4-10.4); PLATELET COUNT 182 K/uL (130-400); RED BLOOD COUNT 3.85 M/uL (4.7-6.1); WHITE BLOOD COUNT 6.39 K/uL (4.8-10.8)
[2016-08-18 07:37] LABS: PARTIAL THROMBOPLASTIN RATIO 1.1
[2016-08-18 07:52] LABS: CALCIUM 8.6 mg/dl (8.5-10.1)
[2016-08-18 07:53] LABS: BUN/CREATININE RATIO 18.3 (10-20); CREATININE 0.93 mg/dl (0.60-1.40); POTASSIUM 3.8 mmol/L (3.5-5.1)
[2016-08-18 08:09] LABS: COMPLETE YES; ECHINOCYTES 1+; IG% 0.8 %; LYMPH % 7.2 %; LYMPH ABS # 0.46 K/uL (1.2-3.4)
--- NOTE | 2016-08-18 08:25 | Progress Note ---
Internal Med Progress Note Date of Service: August 18, 2016. Provider Documentation: SUBJECTIVE: Seen and examined at bedside. States doing well. Denies chest pain, SOB, palpitations, dizziness. No new complaints. 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 ASSESSMENT & PLAN: CAD S/P NEO TO LAD Risk factors: H/O HTN, HLP, Former Tobacco use S/P cardiac cath on 08/17/16 troponin:Negative EKG: No signs of Ischemia CXR: Unremarkable ECHO:Normal LV wall motion, EF:60-65% lipid panel:wnl Continue Aspirin, statins, Losartan, Brilinta Oxygen PRN Appreciate Cardiology help Generalized Rash: Found to have tick bite last Lyme screen negative 3 days ago Repeat Lyme screen:Negative Continue Doxycycline 100mg BID Hypertension: Stable Continue home meds Hyperlipidemia: lipid panel:wnl Continue statins DVT px: Heparin SQ Code Status: Full code Disposition: Monitor in Tele Follow up with on 08/23/16 at 12:20pm Follow up with your cardiology in 1 week as advised. PROCEDURES: CARDIAC CATHETERIZATION: Summary: 1. 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 Sanchez Consult cardiac Rehab ECHO: * There is mild concentric left ventricular hypertrophy. * The left ventricular wall motion is normal. * Left ventricular systolic function is normal. * The LV Ejection Fraction = 60-65%. * There is trace tricuspid regurgitation. * Doppler findings do not suggest pulmonary hypertension. * Grade I diastolic dysfunction, (abnormal relaxation pattern). * There is a smal PFO with mild right to left shunt with injection of agitated saline contrast. Vital Signs: Date Time Temp Pulse Resp B/P Pulse Ox O2 Delivery O2 Flow Rate FiO2 08/18/16 08:00 98 Room Air 08/18/16 07:56 36.9 85 20 102/70 98 Room Air 08/18/16 04:07 36.4 56 16 106/52 94 Room Air 08/18/16 04:00 95 Room Air 08/18/16 03:54 37.0 70 18 98/59 95 Room Air 08/18/16 03:04 36.6 56 16 118/71 08/18/16 02:10 60 16 112/79 08/18/16 01:45 52 14 101/81 08/18/16 01:00 53 112/71 08/18/16 00:56 57 112/73 08/18/16 00:30 66 16 93/56 08/18/16 00:00 56 16 101/61 96 Room Air 08/18/16 00:00 96 Room Air 08/17/16 23:20 36.6 54 18 118/65 96 Room Air 08/17/16 23:15 57 16 115/65 96 Room Air 08/17/16 23:05 80 18 144/76 94 Room Air 08/17/16 22:52 60 18 125/72 93 Room Air 08/17/16 22:36 36.6 58 18 120/67 94 Room Air 08/17/16 22:24 50 16 121/69 93 Room Air 08/17/16 22:19 Room Air 08/17/16 22:14 Room Air 08/17/16 22:09 Room Air 08/17/16 22:04 51 16 118/68 95 Room Air 08/17/16 16:00 Room Air 08/17/16 15:30 36.9 54 16 138/76 96 Room Air 08/17/16 12:17 Room Air 08/17/16 12:00 Room Air 08/17/16 11:34 36.5 51 18 133/85 95 Room Air Lab Results: Results Past 24 Hours Test 08/17/16 19:29 08/17/16 19:49 08/17/16 20:34 08/17/16 21:11 Range/Units Kaolin Activated Coagulation Time 229 270 224 250 94-140 SECONDS Test 08/17/16 21:55 08/18/16 06:59 Range/Units Kaolin Activated Coagulation Time 286 94-140 SECONDS White Blood Count 6.39 4.8-10.8 K/uL Red Blood Count 3.85 4.7-6.1 M/uL Hemoglobin 12.2 14.0-18.0 g/dL Hematocrit 35.5 42-52 % Mean Corpuscular Volume 92.2 80-100 fL Mean Corpuscular Hemoglobin 31.7 25-34 pg Mean Corpuscular Hemoglobin Concent 34.4 32-36 g/dl Platelet Count 182 130-400 K/uL Mean Platelet Volume 10.4 7.4-10.4 fL Neutrophils (%) (Auto) 77.0 % Lymphocytes (%) (Auto) 7.2 % Monocytes (%) (Auto) 15.0 % Eosinophils (%) (Auto) 0.0 % Basophils (%) (Auto) 0.0 % Neutrophils # (Auto) 4.92 1.4-6.5 K/uL Lymphocytes # (Auto) 0.46 1.2-3.4 K/uL Monocytes # (Auto) 0.96 0.11-0.59 K/uL Eosinophils # (Auto) 0.00 0-0.5 K/uL Basophils # (Auto) 0.00 0-0.2 K/uL RDW Standard Deviation 49.6 36.4-46.3 fL RDW Coefficient of Variation 14.7 11.5-14.5 % Immature Granulocyte % (Auto) 0.8 % Immature Granulocyte # (Auto) 0.05 0.00-0.02 K/uL Echinocytes 1+ Activated Partial Thromboplast Time 28.6 21.0-31.0 SECONDS Partial Thromboplastin Ratio 1.1 Sodium Level 142 136-145 mmol/L Potassium Level 3.8 3.5-5.1 mmol/L Chloride Level 106 98-107 mmol/L Carbon Dioxide Level 24 21-32 mmol/L Anion Gap 12.0 3-11 mmol/L Blood Urea Nitrogen 17 7-18 mg/dl Creatinine 0.93 0.60-1.40 mg/dl Est Creatinine Clear Calc Drug Dose 82.0 ml/min Estimated GFR () 96.1 Estimated GFR (Non- 82.9 BUN/Creatinine Ratio 18.3 10-20 Random Glucose 84 70-99 mg/dl Calcium Level 8.6 8.5-10.1 mg/dl
[2016-08-18] MEDS: LOSARTAN POTASSIUM 50 MG TAB PO SCH (08:29)
[2016-08-18] MEDS: HYDROCHLOROTHIAZIDE 25 MG TAB PO SCH (08:29)
[2016-08-18] MEDS: DOXYCYCLINE HYCLATE 100 MG CAP PO SCH (08:29)
[2016-08-18] MEDS ORDERED: TICAGRELOR 90 MG TAB PO SCH (09:00)
[2016-08-18] MEDS ORDERED: BRL90 PO (11:57)
[2016-08-18] MEDS ORDERED: NTRSLP4 SL (11:57)
[2016-08-18] MEDS ORDERED: CZR50 PO (11:57)
[2016-08-18] MEDS ORDERED: DXY100 PO (11:57)
--- NOTE | 2016-08-18 12:03 | CARDIOLOGY PROGRESS NOTE ---
DATE: 08/18/2016 DATE: 08/18/2016. FOLLOW-UP VISIT SUBJECTIVE: The patient received 2 drug-eluting stents, 1 in the LAD and 1 in the diagonal branch due to a bifurcation lesion. He had an uneventful night and is ready to be discharged. He has no complaints today. OBJECTIVE: GENERAL: He is alert and oriented in no acute distress. VITAL SIGNS: Blood pressure is 100/70, pulse is regular at 85. GENERAL: He is afebrile. HEAD, EYES, EARS, NOSE, AND THROAT: Normocephalic. Pupils are equal and reactive to light. Extraocular muscles are intact bilaterally. NECK: The neck veins are flat. Carotids have good upstrokes bilaterally without bruits. Thyroid is nonpalpable. RESPIRATORY: Breath sounds equal bilaterally and clear to auscultation. CARDIOVASCULAR: Heart has a regular rhythm. Normal S1, S2. No S3, S4. No cardiac rubs or murmurs. GASTROINTESTINAL: Abdomen is soft, nontender without organomegaly. EXTREMITIES: Free of edema, digit clubbing, or cyanosis. NEUROLOGIC: Grossly intact. SKIN: Warm to touch. LYMPH NODES: Negative to palpation. LABORATORY DATA: Hemoglobin is 12.2, platelet count is 182, creatinine is 0.93. IMPRESSIONS: 1. New onset angina with acute coronary syndrome. 2. Status post drug-eluting stents within the left anterior descending and diagonal artery. RECOMMENDATIONS: Agree that patient is ready to be discharged. I would not place him on a beta negrita as his blood pressure would not tolerate additional medications. He should return home on dual antiplatelet therapy. I will see him in followup and make those arrangements.
--- NOTE | 2016-08-18 12:05 | Discharge Summary ---
Discharge Summary Date of Service August 18, 2016. Discharge Summary Admission Date: August 16, 2016 at 12:24 Discharge Date: August 18, 2016 Discharge Disposition: Home Principal Diagnosis: Coronary Artery Disease S/P NEO to LAD Procedures: CARDIAC CATHETERIZATION: Summary: 1. 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 Sanchez Consult cardiac Rehab ECHO: * There is mild concentric left ventricular hypertrophy. * The left ventricular wall motion is normal. * Left ventricular systolic function is normal. * The LV Ejection Fraction = 60-65%. * There is trace tricuspid regurgitation. * Doppler findings do not suggest pulmonary hypertension. * Grade I diastolic dysfunction, (abnormal relaxation pattern). * There is a smal PFO with mild right to left shunt with injection of agitated saline contrast. Consultations: Cardiology Pending Studies/Follow-Up: Follow up with on 08/23/16 at 12:20pm Follow up with your cardiology in 1 week as advised. Follow up with if your rash worsens or if needed to be evaluated by dermatology as outpatient Medication Reconciliation New Medications: Doxycycline Hyclate (Doxycycline Hyclate) 100 Mg Cap 100 MG PO BID for 13 Days, #26 CAP Losartan Potassium (Losartan Potassium) 50 Mg Tab 50 MG PO DAILY for 30 Days, #30 TAB 1 Refill Nitroglycerin (Nitrostat) 0.4 Mg/1 Tab Subl 0.4 MG SL UD PRN for Chest Pain for 7 Days, #10 Ticagrelor (Brilinta) 90 Mg Tab 90 MG PO BID for 30 Days, #60 TAB 1 Refill Continued Medications: Aspirin (Aspirin Ec) 81 Mg Tab 81 MG PO DAILY Atorvastatin (Lipitor) 40 Mg Tab 40 MG PO DAILY, TAB Hydrochlorothiazide (Hctz) 12.5 Mg Cap 12.5 MG PO DAILY, TAB Multivitamin (Multivitamin) Tab 1 TAB PO DAILY, TAB Discontinued Medications: Losartan Potassium (Cozaar) 25 Mg Tab Unknown Dose PO DAILY, TAB Admission Information HPI (per Admitting provider): Patient is a 71 yr old male with PMH of HTN, HLP, PFO, seasonal allergies presents with history of intermittent chest pain since 1 week duration. Reports pressure like sensation retrosternally which started while cutting grass 1 week ago which resolved with rest after 30 minutes. States that he noticed recurrence of chest pain with exertion especially when taking a flight of stairs or walking which resolves with rest. Reports associated dizziness. Denies any pain radiation, diaphoresis, nausea, vomiting, SOB, abd pain, orthopnea, PND, leg swelling, fever, chills, change in bowel/bladder habits. Currently denies any chest pain while in ED but feels very tired. Also reports noticing a generalized erythematous rash which started about 2 days ago. His informed that she noticed a tick on his leg which she removed last . Patient had lyme screen 3 days ago by his PCP which is negative. Denies any new meds, foods, recent travel but states using a different soap yesterday which he believes using before without any problems. 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, no motor/sensory deficits, alert , normal mood/affect, oriented x 3 Skin: normal color, + rash (Diffuse, erythematous) Hospital Course CAD S/P NEO TO LAD Risk factors: H/O HTN, HLP, Former Tobacco use S/P cardiac cath on 08/17/16 troponin:Negative EKG: No signs of Ischemia CXR: Unremarkable ECHO:Normal LV wall motion, EF:60-65% lipid panel:wnl Continue Aspirin, statins, Losartan, Brilinta Oxygen PRN Appreciate Cardiology help Generalized Rash: Found to have tick bite last Lyme screen negative 3 days ago Repeat Lyme screen:Negative Continue Doxycycline 100mg BID Hypertension: Stable Continue home meds Hyperlipidemia: lipid panel:wnl Continue statins DVT px: Heparin SQ Code Status: Full code Disposition: Monitor in Tele Follow up with on 08/23/16 at 12:20pm Follow up with your cardiology in 1 week as advised. PROCEDURES: CARDIAC CATHETERIZATION: Summary: 1. 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 Sanchez Consult cardiac Rehab ECHO: * There is mild concentric left ventricular hypertrophy. * The left ventricular wall motion is normal. * Left ventricular systolic function is normal. * The LV Ejection Fraction = 60-65%. * There is trace tricuspid regurgitation. * Doppler findings do not suggest pulmonary hypertension. * Grade I diastolic dysfunction, (abnormal relaxation pattern). * There is a smal PFO with mild right to left shunt with injection of agitated saline contrast. Total time spent on discharge = 35 minutes This includes examination of the patient, discharge planning, medication reconciliation, and communication with other providers. Discharge Instructions Discharge Instructions Date of Service August 18, 2016. Admission Reason for Admission: Chest Pain Discharge Discharge Diagnosis / Problem: Coronary Artery Disease S/P NEO to LAD Discharge Goals Goal(s): Decrease discomfort, Improve function Activity Recommendations Activity Limitations: per Instructions/Follow-up section Lifting Limitations: gradually increase as tolerated Exercise/Sports Limitations: gradually increase as tolerated . Instructions / Follow-Up Instructions / Follow-Up Follow up with on 08/23/16 at 12:20pm Follow up with your cardiology in 1 week as advised. Follow up with if your rash worsens or if needed to be evaluated by dermatology as outpatient Home Care: * Take your medications exactly as directed. Don't skip doses. * Remember that recovery after a heart attack takes time. Plan to rest for at lease 4-8 weeks while you recover. Then return to normal activity when your doctor says it's okay. * Ask your doctor about joining a heart rehabilitation program. * Tell your doctor if you are feeling depressed. Feelings of sadness are common after a heart attack, but it is important that you speak to someone if you are feeling overwhelmed by these feelings. * If you are having chest pain, call 911 for an ambulance. Do NOT drive yourself to the hospital. * Ask your family members to learn CPR. * Learn to take your own blood pressure and pulse. Keep a record of your results. Ask your doctor when you should seek emergency medical attention. He or she will tell you which blood pressure reading is dangerous. Lifestyle Changes: * Maintain a healthy weight. Get help to lose any extra pounds. * Cut back on salt. * Limit canned, dried, packaged, and fast foods. * Don't add salt to your food. * Season foods with herbs instead of salt when you cook. * Break the smoking habit. Enroll in a stop-smoking program to improve your chances of success. * Limit fatty foods. * Check your lipid levels regularly. (Your doctor can show you how to do this.) * Build up your activity according to your doctor's recommendation. * Ask your doctor when it's okay to resume sexual activity. * Tell your doctor about any erectile dysfunction (ED) medication you are taking. Some ED medications are not safe if you take certain heart medications. * Try to manage stress. Follow Up: It is important for you to keep your follow up appointments with your medical provider. Current Hospital Diet Patient's current hospital diet: AHA Diet (Heart Healthy) Discharge Diet Recommended Diet: AHA Diet (Heart Healthy) Pending Studies Studies pending at discharge: no Laboratory Results Lipid Panel Test 08/17/16 05:52 Range/Units Triglycerides Level 72 0-150 mg/dl Cholesterol Level 87 0-200 mg/dl HDL Cholesterol 46 mg/dl Cholesterol/HDL Ratio 1.9 LDL Cholesterol, Calculated 27 mg/dl Medical Emergencies . Who to Call and When: Medical Emergencies: If at any time you feel your situation is an emergency, please call 911 immediately. Call 911 immediately or go to your nearest Emergency Room if you experience any of the following: Warning Signs and Symptoms of a Heart Attack * Chest pain that is not relieved by medication * Shortness of breath . Non-Emergent Contact Non-Emergency issues call your: Primary Care Provider, Carpenter Supervisor Call Non-Emergent contact if: you have a fever, your pain is not controlled, your pain is worsening, your pain is unusual for you, you have any medication questions . . "Provider Documentation" section prepared by Joni Hull. . AMI Core Measures Reason no ASA as I/P: Treatment provided - N/A Reason no ASA at D/C: Treatment provided - N/A Reason no statin as I/P: Treatment provided - N/A Reason no statin at D/C: Treatment provided - N/A VTE Core Measure Inpt VTE Proph given/why not?: Unfractionated heparin SQ, SCD's <Electronically signed by Joni Hull MD> Signed: 08/18/16 [id number] Signed: The status of this report is Signed * If report status is Draft, the document has not been finalized by the responsible provider.
== END 2016-08-18 13:00 | disposition home or self-care (01) ==
LOC: ENRESERVDT → CANRESERV → ENRESERVTM → C.EDB 10:23 → C.MED 12:24 → EDBEDREQ 08-17 21:38 → C.2T 08-17 22:32
PROVIDERS: ADMIT Internal Medicine; ATTEND Internal Medicine
DX: I25.10 Atherosclerotic heart disease of native coronary artery without angina pectoris (principal); I20.0 Unstable angina; R07.2 Precordial pain; I10 Essential (primary) hypertension; Z82.49 Family history of ischemic heart disease and other diseases of the circulatory system; Z79.82 Long term (current) use of aspirin; E78.5 Hyperlipidemia, unspecified; M48.06 Spinal stenosis, lumbar region; T14.8 Other injury of unspecified body region; W57.XXXA Bitten or stung by nonvenomous insect and other nonvenomous arthropods, initial encounter

== ENCOUNTER → 2017-11-08 | Outpatient (CLI) | payer OTHER ==
[~2017-11-08] MED LIST: ASPI81TA28 PO; ATOR-24 PO; CZR50 PO; DICY10CA55 PO; GADAVIST IV PRN; GLUCAGON FOR INJ 1 MG VIAL ONE; NTRSLP4 SL; NURSING VERBAL MED ORDER ONE; ONDA4TAB10 SL; PRLSR20 PO
--- NOTE | 2017-11-08 11:15 | DIAGNOSTIC IMAGING REPORT ---
MRI ENTEROGRAPHY ABD/PELVIS COMBO CLINICAL HISTORY: CROHN'S DISEASE WITH COMPLICATIONS COMPARISON STUDY: CT scan dated 09/22/2017 FINDINGS: The patient was administered 1 mg of intramuscular glucagon. Imaging in the coronal and axial planes was performed before and after the administration of 6.5 cc of intravenous Gadavist. No hepatic or splenic masses are visualized. No gallbladder is visualized. No adrenal masses are visualized. No pancreatic masses are visualized. There is no evidence of abdominal aortic dilatation. There are no transition zones indicate bowel obstruction. There is moderately extensive fecal retention. There is a thick-walled distal ileum consistent with the clinical history of Crohn's disease. There is a mesenteric comb sign. There are no fluid collections to indicate an abscess. No fistulae are visualized. IMPRESSION: 1. Long segment thick-walled distal ileum with an associated mesenteric, sign. The findings are consistent with the clinical history of Crohn's disease. The findings appear mildly improved when compared the prior CT scan dated 09/22/2017. There are no fluid collections to indicate an abscess. There is no bowel obstruction. There is no MRI evidence of a fistula. Electronically signed by: Aron Velazquez M.D. 11/08/2017 11:13 AM Dictated Date/Time: 11/08/2017 11:01 AM
== END | disposition home or self-care (01) ==
LOC: C.MRI 08:10
PROVIDERS: ATTEND Nurse Practitioner Family
DX: K50.819 Crohn's disease of both small and large intestine with unspecified complications (principal)